=== PATIENT | female | born 1955 | race Caucasian/White ===

== ENCOUNTER 2018-12-27 10:04 | Outpatient (CLI) | payer MEDICARE ==
--- NOTE | 2018-12-27 11:21 | CT ---
CT SCREENING PULMONARY LUNG SCAN: HISTORY: Shortness of breath x 1 year. Currently smoker of 30+ years. History of COPD. FINDINGS: There are severe emphysematous lung changes noted with bullous emphysematous change in both upper lob es. Calcified nodules are seen. No soft tissue nodules are noted. There is nodular scarring involv ing the right upper lobe. No significant mediastinal adenopathy is appreciated. The visualized liver parenchyma is unremarkabl e. IMPRESSION: Lung RADS category 1 - negative. Annual screening followup is recommended. POS: CET
== END 2018-12-27 10:05 | disposition home or self-care (01) ==
LOC: CT 10:04
PROVIDERS: ATTEND Internal Medicine
DX: F17.210 Nicotine dependence, cigarettes, uncomplicated (principal); J44.9 Chronic obstructive pulmonary disease, unspecified
CPT/HCPCS: G0297

== ENCOUNTER 2019-05-14 10:46 | Outpatient (CLI) | payer MEDICARE ==
--- NOTE | 2019-05-15 16:32 | MMO ---
Bilateral MAMMO Bilat Screen [facility]. CLINICAL HISTORY: Patient is 63 years old and is seen for screening. The patient has no family history of breast cancer. The patient has no personal history of cancer. The patient has a history of right Excisional Biopsy more than 10 years ago - benign. VIEWS: The views performed were: bilateral craniocaudal with tomosynthesis and bilateral mediolateral oblique with tomosynthesis. FILMS COMPARED: The present examination has been compared to prior imaging studies performed at [facility] on 02/12/2008, 10/14/2009 and 04/03/2014. This study has been interpreted with the assistance of computer-aided detection. MAMMOGRAM FINDINGS: There are scattered fibroglandular densities. There are no suspicious masses, suspicious calcifications, or new areas of architectural distortion. IMPRESSION: THERE IS NO MAMMOGRAPHIC EVIDENCE OF MALIGNANCY. A ROUTINE FOLLOW-UP MAMMOGRAM IN 1 YEAR IS RECOMMENDED. THE RESULTS OF THIS EXAM WERE SENT TO THE PATIENT. ACR BI-RADS Category 1 - Negative MAMMOGRAPHY NOTE: 1. A negative mammogram report should not delay a biopsy if a dominant of clinically suspicious mass is present. 2. Approximately 10% to 15% of breast cancers are not detected by mammography. 3. Adenosis and dense breasts may obscure an underlying neoplasm. Reported by: Fabio JIMENEZ Electonically Signed: [id number]
== END 2019-05-14 10:47 | disposition home or self-care (01) ==
LOC: BICMAMMO 10:46
PROVIDERS: ATTEND Internal Medicine
DX: Z12.31 Encounter for screening mammogram for malignant neoplasm of breast (principal); Z91.89 Other specified personal risk factors, not elsewhere classified
CPT/HCPCS: 77063; 77067

== ENCOUNTER 2020-01-21 14:10 | Outpatient (CLI) | payer MEDICARE ==
--- NOTE | 2020-01-21 15:32 | CT ---
CT chest noncontrast low-dose screening HISTORY: Tobacco abuse. COPD. COMPARISON: 12/27/2018. FINDINGS: Lungs remain hyperinflated with scattered prominent bullae and areas of scarring. Calcified granulomata are consistent with healed granulomatous disease. Area of most focal scarring is present at the right anterior medial lung base with component of mild tubular bronchiectasis. No soft tissue density masses. No pleural fluid or pneumothorax. Lack of contrast limits evaluation of the soft tissues. No bulky mediastinal adenopathy. Degenerative changes thoracic spine are apparent. Postoperative changes lower cervical spine. Metallic clips at the gallbladder fossa. IMPRESSION : Lung RADS category 2. Benign findings. Suggest routine screening. Emphysematous hyperinflation and scarring of the lungs.
== END 2020-01-21 14:11 | disposition home or self-care (01) ==
LOC: BICCT 14:10
PROVIDERS: ATTEND Internal Medicine
DX: Z12.2 Encounter for screening for malignant neoplasm of respiratory organs (principal); F17.210 Nicotine dependence, cigarettes, uncomplicated; J43.9 Emphysema, unspecified; J98.4 Other disorders of lung
CPT/HCPCS: G0297